=== PATIENT | female | born 1995 | race Caucasian/White ===

== ENCOUNTER 2018-10-30 15:50 | Outpatient (CLI) | END 2018-10-30 15:51 | disposition home or self-care (01) | LOC: RHC-LAB 15:50 → FCC-LAB 15:51 | PROVIDERS: ATTEND Nurse Practitioner Family | DX: Z51.81 Encounter for therapeutic drug level monitoring (principal); Z79.899 Other long term (current) drug therapy | CPT/HCPCS: 80306 ==

== ENCOUNTER 2019-01-01 11:54 | Emergency (ER) ==
[2019-01-01 12:03] VITALS: BP 126/84; TEMP 98.4; BMI 26.2
--- NOTE | 2019-01-01 12:33 | ED.PDOC ---
General ED Provider: Dr. SHEEBA TRINIDAD Chief Complaint: Abscess Stated Complaint: abcess labia majora Time Seen by Physician: 12:00 Mode of Arrival: Walk-In Information Source: Patient Exam Limitations: No limitations Primary Care Provider: SALENA WELSH Nursing and Triage Documentation Reviewed and Agree: Yes Does patient meet sepsis criteria?: No If yes, has appropriate treatment been initiated?: No System Inflammatory Response Syndrome: Not Applicable Sepsis Protocol: For patient's 13 years and over: Temp is 96.8 and below OR 101 and greater Pulse >90 BPM Resp >20/minute Acutely Altered Mental Status Are patient's symptoms suggestive of a new infection, such as: -Pneumonia -Skin, Soft Tissue -Endocarditis -UTI -Bone, Joint Infection -Implantable Device -Acute Abdominal Infection -Wound Infection -Meningitis -Blood Stream Catheter Infection -Unknown Complaint Exam - Complaint/Exam Patient Complains of: Denies: Vaginal discharge (has a 4 mm pustule labia right sided ) Onset/Duration: 2 Symptoms Are: Still present Episodes of Voiding Over Last 12 Hours: 0 Initial Severity: Mild Current Severity: Mild Aggravating: Reports: None Alleviating: Reports: None Associated Signs and Symptoms: Denies: Diaphoresis, Back pain, Fever, Hematuria , Dysuria, Constipation, Blood in stool, Rectal pain, Appetite change, Nausea, Vomiting, Decreased urine output, Increased urine frequency, Increased thirst, Decreased activity, Lethargy, Abdominal Pain, Bubble bath use, Vaginal bleeding , Vaginal discharge, Genital swelling, Genital blisters, Retained foreign body : 2 Para: 0 Hx Total # of Abortions (Spontaneous & Elective): 1 Ectopic Risk Factors: Reports: None Ovarian Torsion Risk Factors: Reports: Reproductive age Surgical Obstruction Risk Factors: Reports: None RH Status: Unknown Related Surgical History: Reports: None Abdominal Findings: Present: None Vulva Exam: Present: Labial lesions (pustule 4 mm) Differential Diagnoses: Other (pustule as noted ) Review of Systems - Review Of Systems Constitutional: Reports: No symptoms Eyes: Reports: No symptoms Ears, Nose, Mouth, Throat: Reports: No symptoms Respiratory: Reports: No symptoms Cardiac: Reports: No symptoms GI: Reports: No symptoms : Reports: No symptoms Musculoskeletal: Reports: No symptoms Skin: Reports: No symptoms Neurological: Reports: No symptoms Endocrine: Reports: No symptoms Hematologic/Lymphatic: Reports: No symptoms All Other Systems: Reviewed and Negative Past Medical History - Past Medical History Previously Healthy: Yes Endocrine: Reports: None Cardiovascular: Reports: None Respiratory: Reports: None Hematological: Reports: None Gastrointestinal: Reports: None Genitourinary: Reports: None Neuro/Psych: Reports: None Musculoskeletal: Reports: None Cancer: Reports: None Last Menstrual Period: 10/02/2018 - Surgical History General Surgical History: Reports: None - Family History Family History: Reports: None - Social History Smoking Status: Former smoker Hx Substance Use: No Alcohol Screening: None - Immunizations Tetanus Shot up to Date: Yes Physical Exam - Physical Exam Appearance: Well-appearing, No pain distress, Well-nourished Eyes: SAV, EOMI, Conjunctiva clear ENT: Ears normal, Nose normal, Oropharynx normal Respiratory: Airway patent, Breath sounds clear, Breath sounds equal, Respirations nonlabored Cardiovascular: RRR, Pulses normal, No rub, No murmur GI/: Soft, Nontender, No masses, Bowel sounds normal, No Organomegaly Musculoskeletal: Normal strength, ROM intact, No edema, No calf tenderness Skin: Warm, Dry (pustule labia ) Neurological: Sensation intact, Motor intact, Reflexes intact, Cranial nerves intact, Alert, Oriented Psychiatric: Affect appropriate, Mood appropriate Critical Care Note - Critical Care Note Total Time (mins): 0 Course - Course Vital Signs: Temp Pulse Resp BP Pulse Ox 01/01/19 11:56 98.4 F 80 16 126/84 99 Departure - Departure Time of Disposition: 12:35 Disposition: HOME SELF-CARE Discharge Problem: Abscess, Abscess of labia Instructions: Abscess (ED) Condition: Good Pt referred to PMD for follow-up: Yes IPMP verified?: No Additional Instructions: Please call your Family Physician as soon as possible to schedule a follow-up appointment.see OB YOUR PREVIOUSLY ON FRIDAY. THEY ARE EXPECTING TO SEE YOU. Allergies/Adverse Reactions: Allergies No Known Allergies Allergy (Verified 01/01/19 12:04) Home Medications: Ambulatory Orders Pnv No.95/Ferrous Fum/Folic AC [Prenavite Tablet] 1 each PO DAILY 01/01/19 Disposition Discussed With: Patient
== END 2019-01-01 12:45 | disposition home or self-care (01) ==
LOC: ED 11:54
DX: N76.4 Abscess of vulva (principal)
CPT/HCPCS: 87070; 99283